=== PATIENT | female | born 1985 | race Caucasian/White ===

== ENCOUNTER 2016-05-31 13:13 | Emergency (ER) | payer OTHER ==
[2016-05-31] MEDS ORDERED: NS 1,000 ML IV ONE (13:47)
--- NOTE | 2016-05-31 14:03 | EDPHY ---
H & P Time Seen by Provider: 05/31/16 13:47 HPI/ROS: CHIEF COMPLAINT: Abdominal pain HISTORY OF PRESENT ILLNESS: This patient is a 30 year old female who was referred to the Emergency Department by her primary care provider for acute RLQ abdominal pain beginning Monday morning and increasing in severity over time. Today, she describes her pain as moderate to severe and exacerbated with movement, standing, or walking. She denies fever, nausea, or vomiting. No urinary complaints or vaginal bleeding. She last ate a bag of Goldfish at 1100 this morning. LNMP 4 weeks [employer]. No prior pregnancies. REVIEW OF SYSTEMS: Constitutional: No fever, no chills Eyes: No visual changes ENT: No sore throat Respiratory: No cough, no shortness of breath Cardiac: No chest pain Gastrointestinal: No nausea, no vomiting, +abdominal pain Genitourinary: No hematuria, no dysuria Musculoskeletal: No leg pain or swelling Skin: No rash Neurological: No headache, no numbness, no weakness Psychiatric: No depression Past Medical/Surgical History: Denies. Social History: Drinks socially. Non-smoker. Smoking Status: Never smoked Physical Exam: General Appearance: Alert, no distress Eyes: Pupils equal and round, no conjunctival pallor or injection ENT, Mouth: Mucous membranes moist Neck: Normal inspection Respiratory: Lungs are clear to auscultation Cardiovascular: Regular rate and rhythm Gastrointestinal: Abdomen is soft, diffuse pelvic tenderness worse in the suprapubic region Neurological: A&O, nonfocal, normal gait Skin: Warm and dry, no rash Extremities: Nontender, no pedal edema Psychiatric: Mood and affect normal Constitutional: Initial Vital Signs Temperature (C) 36.8 C 05/31/16 13:14 Heart Rate 103 H 05/31/16 13:14 Respiratory Rate 18 05/31/16 13:14 Blood Pressure 135/96 H 05/31/16 13:14 O2 Sat (%) 99 05/31/16 13:14 O2 Delivery Mode Room Air Allergies/Adverse Reactions: No Known Allergies Allergy (Unverified 05/31/16 13:18) Home Medications: Medication Instructions Recorded NK [No Known Home Meds] 05/31/16 Medical Decision Making - Diagnostics Imaging: Study: Ultrasound of the abdomen Indication:Pain Results: Ultrasound of the abdomen was obtained. The results of the study are: small amount of free fluid; appendix not visualized. The study was read by the radiologist, Dr. Bernardo Pride. I viewed the images myself on the PACS system. Study: Ultrasound of the pelvis Indication: Pain Results: US of the pelvis was obtained. The results of the study are: 4cm right hemorrhagic ovarian cyst. The study was read by the radiologist, Dr. Jimmie Jeffers. I viewed the images myself on the PACS system. ED Course/Re-evaluation: This patient presents acute pelvic pain. Stat test is negative; there is no evidence of ectopic or miscarriage. 1l IV NS, 4mg IV morphine, and 4mg IV Zofran administered. Labs obtained. Will proceed with US of the abdomen to rule out appendicitis. She is agreeable to this. 1434: Abdominal US results reported to me by Dr. Pride. Will proceed with pelvic US, as I suspect an ovarian cyst, given that her white blood cell count is normal and she is afebrile. 1545: Pelvic US results reported to me by Dr. Jeffers. 30mg IV Toradol administered for hemorrhagic ovarian cyst. I discussed pelvic US results with the patient. She is given Ibuprofen instructions for pain. She understands return to the ED precautions and will be discharged home in good condition with instructions to follow-up with [facility] Attendant for further evaluation. Differential Diagnosis: Differential diagnosis includes though it is not limited to ectopic , ovarian cyst, ovarian torsion, PID, UTI, appendicitis. - Data Points Laboratory Results: Laboratory Results 05/31/16 13:53 05/31/16 13:53 Medications Given: Discontinued Medications Sodium Chloride (Ns) 1,000 mls @ 0 mls/hr IV ONCE ONE PRN Reason: Wide Open Stop: 05/31/16 13:48 Last Admin: 05/31/16 13:54 Dose: 1,000 mls Ketorolac Tromethamine (Toradol) 30 mg IVP EDNOW ONE Stop: 05/31/16 16:01 Last Admin: 05/31/16 16:07 Dose: 30 mg Morphine Sulfate (Morphine) 4 mg IVP EDNOW ONE Stop: 05/31/16 14:17 Last Admin: 05/31/16 14:28 Dose: 4 mg Ondansetron HCl (Zofran) 4 mg IVP EDNOW ONE Stop: 05/31/16 14:17 Last Admin: 05/31/16 14:29 Dose: 4 mg Departure - Departure Disposition: Home, Routine, Self-Care Clinical Impression: Hemorrhagic ovarian cyst Condition: Good Instructions: Ovarian Cyst (ED) Additional Instructions: 1. Call to schedule a follow-up appointment with an C[facility] Attendant. We have referred you to our on-call provider, Dr. Lesly Ortiz. 2. Take ibuprofen, 600mg every 6-8 hours, as needed for pain. 3. Return to the Emergency Department with worsening pain, fever, uncontrollable vomiting, or other serious concerns. Referrals: Lesly Ortiz MD [Medical Doctor] - As per Instructions Report Scribed for: Kiley Ferrera Report Scribed by: Arina Osborne Date of Report: 05/31/16 Time of Report: 14:03 Physician Review and Approval Statement: 05/31/16 14:03 Portions of this note were transcribed by a certified medical asst. I personally performed a history, physical exam, medical decision making, and confirmed accuracy of information the transcribed note.
[2016-05-31] MEDS ORDERED: ONDANSETRON 4 MG/2 ML VIAL IVP ONE (14:16)
[2016-05-31 14:33] LABS: % IMMATURE GRANULYOCYTES 0.3 % (0.0-1.1); ABSOLUTE IMMATURE GRANULOCYTES 0.02 10^3/uL (0.00-0.10); ADD DIFF? NO; ADD MORPH? NO; ADD SCAN? NO; ATYPICAL LYMPHOCYTE FLAG 30 (0-99); FRAGMENT RBC FLAG 0 (0-99); HEMATOCRIT 40.3 % (38.0-47.0); HEMOGLOBIN 13.8 g/dL (12.6-16.3); LEFT SHIFT FLG 0 (0-99); LIPEMIA HEMOLYSIS FLAG 90 (0-99); MEAN CELL HEMOGLOBIN 29.6 pg (27.9-34.1); MEAN CELL HEMOGLOBIN CONCENTR. 34.2 g/dL (32.4-36.7); MEAN CELL VOLUME 86.3 fL (81.5-99.8); PLATELET CLUMPS FLAG 0 (0-99); PLATELET COUNT 234 10^3/uL (150-400); RED BLOOD CELL COUNT 4.67 10^6/uL (4.18-5.33); RED CELL DISTRIBUTION WIDTH 12.9 % (11.5-15.2)
[2016-05-31 14:49] LABS: ANION GAP 9 mEq/L (8-16); CALCIUM 9.5 mg/dL (8.5-10.4); CARBON DIOXIDE 23 mEq/l (22-31); CHLORIDE 106 mEq/L (97-110); CREATININE 0.8 mg/dL (0.6-1.0); GLOMERULAR FILTRATION RATE > 60; GLUCOSE 80 mg/dL (70-100); POTASSIUM 4.5 mEq/L (3.5-5.2); SODIUM 138 mEq/L (134-144)
[2016-05-31 15:57] VITALS: BP 133/80; PULSE 98; RESP 16; TEMP 99.3; O2SAT 97
[2016-05-31] MEDS ORDERED: KETOROLAC 30 MG/1 ML SDV IVP ONE (16:00)
== END 2016-05-31 16:20 | disposition home or self-care (01) ==
DX: N83.201 Unspecified ovarian cyst, right side (principal)
CPT/HCPCS: 96374; J1885; J2405